=== PATIENT | male | born 1930 | race Caucasian/White ===

== ENCOUNTER 2017-10-04 14:20 | Emergency (ER) | payer OTHER, BC ==
--- NOTE | 2017-10-04 14:26 | PDOC ---
History of Present Illness - General Chief Complaint: Injury Stated Complaint: LEFT THIGH PAIN Time Seen by Provider: 10/04/17 14:24 - History of Present Illness Initial Comments: 10/04/17 14:34 The patient is an 87 year old male with a history of HTN, HLD, Borderline DM, CVA who presents for evaluation of left leg pain. The patient reports experiencing a fall 4 days ago when he was getting up out of a chair. He states that his left leg "gave out on him" causing him to fall onto his left side. He denies any head trauma or LOC and remembers the whole event clearly. He states that he has been ambulatory since the fall, but has been noting pain with walking along his left leg prompting his presentation to the ED for evaluation. He otherwise denies fevers, chills, SOB, chest pain, abdominal pain , nausea, vomiting, weakness, numbness, tingling, or changes with urination or bowel movements. Past History - Past Medical History Allergies/Adverse Reactions: Allergies Allergy/AdvReac Type Severity Reaction Status Date / Time No Known Allergies Allergy Verified 10/04/17 14:23 Home Medications: Ambulatory Orders Allopurinol [Zyloprim -] 100 mg PO BID 02/14/12 Amlodipine Besylate [Norvasc -] 5 mg PO DAILY 02/14/12 Simvastatin [Zocor -] 20 mg PO HS 11/08/14 Apixaban [Eliquis] 5 mg PO BID 10/04/17 Cholecalciferol (Vitamin D3) [Vitamin D3] 1,000 unit PO DAILY 10/04/17 Cinnamon Bark [Cinnamon] 500 mg PO DAILY 10/04/17 Cyanocobalamin Vit B-12 Inj. [Redisol] 1,000 mcg IJ MONTHLY 10/04/17 Metoprolol Succinate [Toprol Xl] 25 mg PO DAILY 10/04/17 Mv-Mins/Folic/Lycopene/Ginkgo [One-A-Day Men's 50+ Tablet] 1 each PO DAILY 10/04 Lando-3/Dha/Epa/Fish Oil [Fish Oil 500 mg Softgel] 1 each PO DAILY 10/04/17 Anemia: No Asthma: No Cancer: No Cardiac Disorders: No CVA: Yes (2009/NO DEFICITS/TIA 2010 NO DEFICITS/PARTIAL COROTID OBSTRUCTION) COPD: No CHF: No Dementia: No Diabetes: Yes (BORDERLINE/NO MEDS) GI Disorders: No Disorders: No HTN: Yes Hypercholesterolemia: Yes Liver Disease: No Seizures: No Thyroid Disease: No - Surgical History Abdominal Surgery: No Appendectomy: No Cardiac Surgery: No Cholecystectomy: No Lung Surgery: No Neurologic Surgery: No Orthopedic Surgery: No - Suicide/Smoking/Psychosocial Hx Smoking Status: No Smoking History: Never smoked Have you smoked in the past 12 months: No Number of Cigarettes Smoked Daily: 0 Hx Alcohol Use: No Drug/Substance Use Hx: No Substance Use Type: None Hx Substance Use Treatment: No Review of Systems - Review of Systems Comments:: 10/04/17 14:38 Constitutional: No fevers, chills, fatigue, malaise HEENT: No Rhinorrhea, nasal congestion, visual changes Cardiovascular: No chest pain, syncope, palpitations, lightheadedness Respiratory: No Cough, SOB, Hemoptysis, Gastrointestinal: No Abdominal pain, Nausea, Vomiting, Constipation, Diarrhea, Melena Genitourinary: No Dysuria, Frequency, Urgency, Hesitancy, Hematuria, Flank pain Musculoskeletal: Left Leg Pain. No Myalgia, arthralgia Skin: No rashes, itching, bruising, pallor Neurologic: No Headache, Dizziness, Numbness, Weakness, or Tingling Psychiatric: No Hallucinations. No SI or HI *Physical Exam - Physical Exam Comments: 10/04/17 14:39 General Appearance: Nourished. No Apparent Distress HEENT: EOMI, GAY. No Pharyngeal Erythema, Tonsillar Exudate, Tonsillar Erythema Neck: No Cervical Lymphadenopathy Respiratory/Chest: Lungs Clear, Normal Breath Sounds. No Crackles, Rales, Rhonchi, Wheezing Cardiovascular: Regular Rhythm, Regular Rate. No Murmur, Gallops, Rubs Gastrointestinal/Abdominal: Normal Bowel Sounds, Soft. No Guarding, Rebound, Tenderness Musculoskeletal: Normal ROM of the left hip and knee without tenderness to palpation. Sensation to light touch and temperature intact distally bilaterally. 2+ DP pulses bilaterally. No CVA Tenderness Extremity: Normal Capillary Refill Integumentary: Normal Color, Dry, Warm Neurologic: program services assistant II-XII NML intact, Fully Oriented, Alert, Normal Mood/Affect, Normal Response, Motor Strength 5/5. Normal Finger to Nose and Heel to Rose, Ambulatory Medical Decision Making - Medical Decision Making 10/04/17 14:40 The patient is an 87 year old male with a history of HTN, HLD, Borderline DM, CVA who presents for evaluation of left leg pain. Differential includes but is not limited to: Fracture, contusion, ligamentous injury. Given the patient's symptoms and history of ambulation, it is less likely the patient sustained a fracture and more likely a contusion causing the patient's symptoms. However, we will obtain plain films of the patients left hip, femur, knee to evaluate further for possible fracture. We will continue to monitor and reassess in the meantime. 10/04/17 15:36 Plain films are negative as read by our radiologist. We are comfortable discharging the patient home at this time with orthopedic follow up. We discussed the results, plan, and return precautions with the patient who voiced understanding and is agreeable with the plan. *DC/Admit/Observation/Transfer Diagnosis at time of Disposition: Leg pain Qualifiers: Laterality: left Qualified Code(s): M79.605 - Pain in left leg - Discharge Dispostion Disposition: HOME Condition at time of disposition: Good Admit: No - Referrals Referrals: Christy Morse [Primary Care Provider] - Nabil John MD [Staff Physician] - - Patient Instructions Printed Discharge Instructions: DI for Contusion, How to Prevent Falls Additional Instructions: Please return to the ER if you experience concerning or worsening symptoms including worsening pain, weakness, or difficulty walking. Your x-rays were normal here in the ER. You may use tylenol or ibuprofen at home as needed to help manage your pain. It is important that you call to schedule a follow up appointment with our glaucoma specialist (Dr. John) to discuss your ER visit and further management of your symptoms within 2-3 days. - Post Discharge Activity
[2017-10-04 14:36] VITALS: BP 107/53; PULSE 60; TEMP 98.4; BMI 25.0
--- NOTE | 2017-10-04 14:48 | PDOC ---
Attending Attestation - Resident Resident Name: Pranay Mohamud - ED Attending Attestation I have performed the following: I have examined & evaluated the patient, The case was reviewed & discussed with the resident, I agree w/resident's findings & plan, Exceptions are as noted - HPI HPI: 10/04/17 14:43 87-year-old male with a history of hypertension, CVA 8 years ago (no residual deficits), pacemaker, neuropathy presents to the emergency Department requesting x-ray of the left hip after a fall 4 days ago. The patient reports he stood up from his chair and his left leg gave out and he fell onto his left side striking his left hip and then falling on his outstretched left hand. Denies head strike. Denies loss of consciousness. Has been walking on his leg without issue, but reports left anterior hip pain when he does bear weight on his hip. Denies any prodrome of dizziness, palpitations, chest pain, states his legs have been feeling weaker over the last few months bilaterally. He reports starting physical therapy recently given this increased weakness in his lower extremities. Denies any current acute weakness or numbness in the left or right lower extremities over the last week. Denies any back pain. Patient went to 2 other emergency departments yesterday for x-rays, but left before being seen due to long length of stay. Has not taken any medication for pain. Denies headache, nausea, vomiting, abdominal pain, neck pain. Denies lower extremity edema. - Physicial Exam PE: 10/04/17 14:48 GENERAL: Awake, alert, and fully oriented, in no acute distress. Pleasant. HEAD: No signs of trauma EYES: PERRLA, EOMI, sclera anicteric, conjunctiva clear ENT: Auricles normal inspection, hearing grossly normal, nares patent, oropharynx clear without exudates. Moist mucosa NECK: Normal ROM, supple, no lymphadenopathy, JVD, or masses LUNGS: Breath sounds equal, clear to auscultation bilaterally. No wheezes, and no crackles HEART: Regular rate and rhythm, normal S1 and S2, no murmurs, rubs or gallops ABDOMEN: Soft, nontender, normoactive bowel sounds. No guarding, no rebound. No masses EXTREMITIES: Normal range of motion, no edema. No clubbing or cyanosis. No cords, erythema, or tenderness. L hip with FROM passively and actively. 2+ peripheral pulses. +mild ttp of L anterior hip. No deformities. No wrist ttp b/l , no snuffbox ttp. BACK: no midline spinal cervical, thoracic, or lumbar ttp NEUROLOGICAL: Normal speech, cranial nerves intact, negative pronator drift, 5/ 5 strength in all 4 extremities, normal sensation to light touch in all 4 extremities, normal cerebellar exam, antalgic but steady gait, normal reflexes and tone SKIN: Warm, Dry, normal turgor, no rashes or lesions noted. - Medical Decision Making 10/04/17 14:50 87-year-old male with multiple medical problems presents to the emergency Department with left hip pain when ambulating since falling 4 days ago. Pt reports improvement in pain since the fall, but his wanted to make sure he didn't have any bony injuries. Vitals are within normal limits. Exam with mild tenderness to palpation to the anterior aspect of the left hip. Patient is neurovascularly intact. Likely bone versus muscle contusion, however we will obtain x-ray to rule out bony injury. Patient declines pain medications. 10/04/17 15:35 XR negative for acute bony injury. Pt able to ambulate. Discussed results with patient, advised them to f/u with orthopedics within 1 week. Pt expresses understanding, requests DC home. I discussed the physical exam findings, ancillary test results and final diagnoses with the patient. I answered all of the patient's questions. The patient was satisfied with the care received and felt comfortable with the discharge plan and treatment plan. The patient will call their primary care physician within 24 hours to arrange follow-up and will return to the Emergency Department with any new, persistent or worsening symptoms.
== END 2017-10-04 15:40 | disposition home or self-care (01) ==
LOC: FER 14:20
DX: M79.605 Pain in left leg (principal); R73.03 Prediabetes; Z86.73 Personal history of transient ischemic attack (TIA), and cerebral infarction without residual deficits; I10 Essential (primary) hypertension; E78.5 Hyperlipidemia, unspecified; W07.XXXA Fall from chair, initial encounter; Y93.89 Activity, other specified; Y92.9 Unspecified place or not applicable
CPT/HCPCS: 73523-TC-FY; 73552-TC-LT-FY; 73560-TC-LT-FY; 99281-25